=== PATIENT | male | born 1955 ===

== ENCOUNTER 2020-08-30 12:52 | Outpatient (REF) | payer SELFPAY | END 2020-08-30 12:53 | disposition home or self-care (01) | LOC: HO.HAP 12:52 | PROVIDERS: Visit Provider Internal Medicine | DX: Z13.89 Encounter for screening for other disorder (principal) ==

== ENCOUNTER 2020-09-10 10:00 | Outpatient (REF) | payer SELFPAY ==
--- NOTE | 2020-09-10 10:19 | MHC.AU.P13 ---
Hearing Instrument Problem Date of Visit: 09/10/20 Summary: SCHREIBER PROBLEM- Patient dropped off old Oticon SUMO #[id number] - earmold tubing broken. Cleaned earmold and hearing aid, retubed with tube lock tubing, and amplifying clearly. Signature: Provider: FAIZA Robbins-HIS
== END 2020-09-10 10:01 | disposition home or self-care (01) ==
LOC: HO.HAP 10:00
PROVIDERS: Visit Provider Internal Medicine
DX: Z46.1 Encounter for fitting and adjustment of hearing aid (principal)
CPT/HCPCS: 99499

== ENCOUNTER 2020-12-13 10:35 | Outpatient (REF) | payer SELFPAY ==
--- NOTE | 2020-12-13 10:51 | MHC.AU.P13 ---
Hearing Instrument Problem (old aid) Date of Visit: 12/13/20 Left Ear: Corporation Pilot: Phonak Model: Carol B 50-UP Serial Number: [id number] Repair Warranty: 06/04/2023 Loss and Damage Warranty: 06/04/2023 Battery Size: 675 Color: Graphite Sky Tubing: DRI TUBE Thick Type of Mold: Microsonic Shell Dispensed By: [facility] Date of Fittin03/21/2020 Follow-Up Summary: Old Left Sumo brought in for tubing change. Cleaned and changed tubing but was only working intermittently - explained to . Recommendations: Recommendations: Hearing instrument follow-up or maintenance as needed. Signature: Provider: LAYLA Robbins
== END 2020-12-13 10:36 | disposition home or self-care (01) ==
LOC: HO.HAP 10:35
PROVIDERS: Visit Provider Internal Medicine
DX: Z46.1 Encounter for fitting and adjustment of hearing aid (principal)
CPT/HCPCS: 99499

== ENCOUNTER 2021-04-05 12:37 | Outpatient (REF) | payer SELFPAY | END 2021-04-05 12:38 | disposition home or self-care (01) | LOC: HO.HAP 12:37 | PROVIDERS: Visit Provider Internal Medicine | DX: Z13.89 Encounter for screening for other disorder (principal) ==

== ENCOUNTER 2021-10-11 08:43 | Outpatient (REF) | payer SELFPAY ==
--- NOTE | 2021-10-11 08:48 | MHC.AU.HFU ---
Hearing Instrument Follow-Up- Binaural Date of Visit: 10/11/21 Right Ear: None Left Ear: Air Quality Manager: Phonak Model: Carol B 50-UP Serial Number: [id number] Repair Warranty: 06/04/2023 Loss and Damage Warranty: 06/04/2023 Battery Size: 675 Color: Graphite Sky Tubing: DRI TUBE Thick Type of Mold: Microsonic Shell Dispensed By: [facility] Date of Fittin03/21/2020 Follow-Up Summary: Hearing aid maintenance. Hearing aid was cleaned, tubing changed, microphones vacuumed. Hearing aid is in good working order. Mr. Mckeon states that he is interested in trying a hearing aid for the right ear again, even if just for sound awareness. He feels he struggles in social situations because he is only wearing one hearing aid. He states that he has previously tried a CROS but didn't like it. He would consider contacting [facility] to see if he could go through them for a right hearing aid. Advised that first I recommend he take one of our demo aids to see if he notes a benefit. However, he no longer has a right earmold. He is willing to purchase a new right earmold for $85. Took an earmold impression of the right ear without incident. Earmold ordered. Recommendations: Patient will be contacted when materials have arrived.Will schedule him to come in and have a loaner aid set up with the new right earmold. Diagnosis Code(s): Primary Diagnosis: H90.3 Bilateral Sensorineural Hearing Loss Signature: Provider: Jamey Hu, CCC-A
== END 2021-10-11 08:44 | disposition home or self-care (01) ==
LOC: HO.HAP 08:43
PROVIDERS: Visit Provider Internal Medicine
DX: Z13.89 Encounter for screening for other disorder (principal)

== ENCOUNTER 2021-11-13 13:53 | Outpatient (REF) | payer SELFPAY ==
--- NOTE | 2021-11-13 16:40 | MHC.AU.HFU ---
Hearing Instrument Follow-Up- Binaural Date of Visit: 11/13/21 Left Ear: Otter Trawler Boatswain: Phonak Model: Carol B 50-UP Serial Number: [id number] Repair Warranty: 06/04/2023 Loss and Damage Warranty: 06/04/2023 Battery Size: 675 Color: Graphite Sky Tubing: DRI TUBE Thick Type of Mold: Microsonic Shell Dispensed By: [facility] Date of Fittin03/21/2020 Follow-Up Summary: Mr. Malloy was seen today for fitting of a new right earmold with a demo hearing aid for the right ear. He has not used a hearing aid in the right ear in a number of years, but would like to try one again. Recommended he take one of our demos for two weeks to determine if he notices a benefit. If he does, he will try to go through [facility] again. He did not have an earmold for the right, so he purchased a new one today. Right earmold fit well. Programmed a demo Phonak Carol P70-UP aid ([id number]) for the right ear. Ran a feedback test. He reported comfortable fit and good sound quality. He felt he was hearing more clearly now. Recommendations: Will check in with Mr. Malloy in two weeks. to see if he wants to proceed with getting his own right hearing aid. Diagnosis Code(s): Primary Diagnosis: H90.3 Bilateral Sensorineural Hearing Loss Signature: Provider: Jamey Hu, [facility]
== END 2021-11-13 13:54 | disposition home or self-care (01) ==
LOC: HO.HAP 13:53
PROVIDERS: Visit Provider Internal Medicine
DX: Z46.1 Encounter for fitting and adjustment of hearing aid (principal); H90.3 Sensorineural hearing loss, bilateral
CPT/HCPCS: V5264

== ENCOUNTER 2022-01-02 14:07 | Outpatient (REF) | payer SELFPAY | END 2022-01-02 14:08 | disposition home or self-care (01) | LOC: HO.HAP 14:07 | PROVIDERS: Visit Provider Internal Medicine | DX: Z13.89 Encounter for screening for other disorder (principal) ==

== ENCOUNTER 2022-03-27 12:38 | Outpatient (REF) | payer OTHER, SELFPAY ==
--- NOTE | 2022-03-28 11:14 | MHC.AU.AHA ---
Adult Audiological Evaluation Date of Visit: 03/27/22 Reason for Appointment: History of congenital profound hearing loss. Patient communicates with spoken Moroccan and heavily utilizes lip reading in conversation. He arrives today to dete Previous Hearing Test Results: On 05/31/2019 at [facility]- Severe to profound sensorineural hearing loss bilaterally Hearing Instrument History- Left Ear: Slurry Control Tender: Phonak Model: Carol B 50-UP Serial Number: [id number] Battery Size: 675 Warranty: 06/04/2023 Loss and Damage Warranty: 06/04/2023 Dispensed By: [facility] Date of Fittin03/21/2020 Otoscopy: Right Ear: Unremarkable Left Ear: Unremarkable Hearing Evaluation: Transducer(s) Used: Insert Earphones Method: Conventional Audiometry Stimuli Used: Pure Tones Right Ear: Description of Hearing: Severe to profound sensorineural hearing loss Left Ear: Description of Hearing: Severe to profound sensorineural hearing loss Speech Recognition Threshold (SRT): Method Used: Monitored Live Voice Stimuli Used: Spondee Words Right Ear: 85 dBHL Left Ear: 85 dBHL Word Discrimination: Method: Monitored Live Voice Word Lists Used: W-22 Right Ear: 10% at 110 dBHL Left Ear: 10% at 110 dBHL Most Comfortable Level (MCL): Right Ear: 110 dBHL Left Ear: 110 dBHL Comparison: Compared to most recent evaluation: High frequency thresholds have decreased bilaterally Interpretation of Results: Recommendations: Audiological re-evaluation in one year. Patient has been using only a left-sided hearing aid for many years. Recently, he has been trying a demo hearing aid from our office on the right ear to see if he would like it. He has found it beneficial and would like to go forward with purchasing a right-sided hearing aid of his own. See Hearing Aid Evaluation report for details. Diagnosis: Primary Diagnosis: H90.3 Bilateral Sensorineural Hearing Loss Signature: Provider: Jamey Amin, [facility]-A
== END 2022-03-27 12:39 | disposition home or self-care (01) ==
LOC: HO.SH 12:38
PROVIDERS: Visit Provider Internal Medicine
DX: H90.3 Sensorineural hearing loss, bilateral (principal)
CPT/HCPCS: 92552; 92556

== ENCOUNTER 2022-03-27 13:28 | Outpatient (REF) | payer SELFPAY ==
--- NOTE | 2022-03-28 11:11 | MHC.AU.MED ---
Medical Clearance for Hearing Instrumentation Date: 03/28/22 Patient Name: Brandt Mckeon Date of : 1955 Referring Provider: Mike Forbes MD We have seen your patient on 03/27/22 and have determined that they are a candidate for amplification (See accompanying report). Specifically, they would benefit from: Hearing aid use in both ears There is a statute that addresses Medical Evaluation Requirements prior to fitting a patient with a hearing aid. According to [place] statute 265 CMR:6.03(1), (a) General. Except as provided in 265 CMR 6.03(1)(b), a clinical genetics laboratory chief shall not sell a hearing aid unless the prospective user has presented to the clinical genetics laboratory chief a written statement signed by a licensed physician that states that the patient's hearing loss has been medically evaluated and the patient may be considered a candidate for a hearing aid. The medical evaluation must have taken place within the preceding six months. Please note: Due to the [place] Statute referenced above, we cannot accept a signature other than that of a licensed physician. COLD ROLL PACKER SHEET IRON and PA signatures cannot be accepted. I am in agreement with the above recommendation. There is no medical contraindication for hearing instrumentation. Physician Signature Date Physician Name (Printed)
--- NOTE | 2022-03-28 11:11 | MHC.AU.HAS ---
Hearing Aid Evaluation Date of Visit: 03/27/22 Historical Information: Description of Hearing: Severe to profound sensorineural hearing loss bilaterally Current personal amplification information, if applicable: A left-sided Phonak Carol B50-UP, obtained on 03/21/2020 Summary: Patient has been trying a loaner Phonak Carol P Trial instrument for the past few months while he applied to [facility]. He was ultimately denied by [facility], as his income did not meet the guidelines. He found that he does benefit from having a right-sided hearing aid and would like to purchase one of his own. He already has a new mold for the right ear that he previously purchased to do the trial. Hearing Aid Prescription: Based on the individual?s shared listening needs, communication environments, dexterity, desire for connectivity, and personal preferences, the following prescription for amplification has been made: Right ear: Hand Packer: [employer] Model: Carol P50-UP Battery Size: 675 Color: Graphite Sky Action Taken/Action Needed: Medical Clearance to be requested from PCP/ENT Patient will be contacted to schedule a hearing aid fitting when the hearing aid arrives. Primary Diagnosis: H90.3 Bilateral Sensorineural Hearing Loss Signature: Provider: Jamey Amin, CCC-A
== END 2022-03-27 13:29 | disposition home or self-care (01) ==
LOC: HO.HAP 13:28
PROVIDERS: Visit Provider Internal Medicine
DX: H90.3 Sensorineural hearing loss, bilateral (principal)
CPT/HCPCS: 92590; 92591

== ENCOUNTER 2022-04-25 09:53 | Outpatient (REF) | payer SELFPAY ==
--- NOTE | 2022-04-25 13:15 | MHC.AU.HFA ---
Hearing Instrument Fitting- Adult- Binaural Date of Visit: 04/25/22 Hearing Instruments Dispensed: Right Ear: Serial Number: Car Medina P50-UP SN #[id number] Graphite Sky Repair Warranty: 06/25/2025 Loss and Damage Warranty: 06/25/2025 Service Plan: 04/25/2025 Battery Size: 675 Tubing: DRI TUBE Thick Type of Mold: Microsonic Shell (fit date of 11/13/2021) Left Ear: Serial Number: Car B50-UP SN #[id number] Graphite Sky Repair Warranty: 06/04/2023 Loss and Damage Warranty: 06/04/2023 Service Plan: Battery Size: 675 Tubing: DRI TUBE Thick Type of Mold: Microsonic Shell Summary of Fitting: Fit the right hearing aid as patient feels the loaner right aid has been helpful in that he is able to localize sounds and know from which side someone is speaking. Ran feedback test and performed Real Ear measurements with and without SoundRecover, making adjustments to better meet targets. SoundRecover and volume control were then activated. Added a T-Coil program. Following the fit of the right aid, patient noted a difference in loudness between the 2 ears. Most current hearing test last month showed a decrease, but the left aid was not re-programmed. Re-programmed the left aid to the updated audiogram with patient reporting the aids sounded more equal while in the office. Patient has a flip phone so it cannot be paired to the right aid. Patient paid $1250.00 today. Recommendations:Patient does not feel follow-up is necessary at this time. Please call our clinic with any questions or concerns prior to 05/26/2022. Diagnosis Code(s):Primary Diagnosis: H90.3 Bilateral Sensorineural Hearing Loss Services Performed:SCHREIBER Non-Quantity Charges: [facility] [place] [place] (V5299) Signature:Provider: Jesus Zhang, MINE
== END 2022-04-25 09:54 | disposition home or self-care (01) ==
LOC: HO.HAP 09:53
PROVIDERS: Visit Provider Internal Medicine
DX: Z46.1 Encounter for fitting and adjustment of hearing aid (principal); H90.3 Sensorineural hearing loss, bilateral
CPT/HCPCS: V5299

== ENCOUNTER 2022-07-18 10:21 | Outpatient (REF) | payer SELFPAY | END 2022-07-18 10:22 | disposition home or self-care (01) | LOC: HO.HAP 10:21 | PROVIDERS: Visit Provider Internal Medicine | DX: Z13.89 Encounter for screening for other disorder (principal) ==

== ENCOUNTER 2022-09-08 09:05 | Outpatient (REF) | payer SELFPAY | END 2022-09-08 09:06 | disposition home or self-care (01) | LOC: HO.HAP 09:05 | PROVIDERS: Visit Provider Internal Medicine | DX: Z13.89 Encounter for screening for other disorder (principal) ==

== ENCOUNTER 2022-12-19 14:36 | Outpatient (REF) | payer SELFPAY | END 2022-12-19 14:37 | disposition home or self-care (01) | LOC: HO.HAP 14:36 | PROVIDERS: Visit Provider Internal Medicine | DX: Z13.89 Encounter for screening for other disorder (principal) ==

== ENCOUNTER 2023-01-14 14:00 | Outpatient (REF) | payer SELFPAY ==
--- NOTE | 2023-01-14 14:19 | MHC.AU.HA3 ---
Hearing Instrument Follow-Up- Binaural Date of Visit: 01/14/23 Right Ear: Make, Model, Color, Serial Number: Car Medina P50-UP SN #[id number] Graphite Sky Commercial Loan Collection Officer Repair Warranty: 06/25/2025 Commercial Loan Collection Officer Loss and Damage Warranty: 06/25/2025 [facility] Service Plan: 04/25/2025 Battery Size: 675 Earmold/Dome/CShell/SlimTip:Microsonic Shell (fit date of 11/13/2021) Dispensed By: [facility] Date of Fittin04/25/2022 Left Ear: Montrell, Model, Color, Serial Number: Car B50-UP SN #[id number] Graphite Sky Commercial Loan Collection Officer Repair Warranty: 06/04/2023 Commercial Loan Collection Officer Loss and Damage Warranty: 06/04/2023 [facility] Service Plan: 06/04/2023 Battery Size: 675 Earmold/Dome/CShell/SlimTip: Microsonic Shell Dispensed By: [facility] Date of Fittin03/21/2020 Follow-Up Summary: Brandt returned for a left-sided tubing change. The right side recently had a tubing change on 12/19/2022. Cleaned both hearing aids and ear molds. Retubed both molds as the right side was already starting to hardened. A listening check demonstrated that the hearing aids are in good working order. Recommendations: Hearing instrument follow-up or maintenance as needed. Diagnosis Code(s): Primary Diagnosis: H90.3 Bilateral Sensorineural Hearing Loss Signature: Provider: Jesus Cervantes, [facility]
== END 2023-01-14 14:01 | disposition home or self-care (01) ==
LOC: HO.HAP 14:00
PROVIDERS: Visit Provider Internal Medicine
DX: Z13.89 Encounter for screening for other disorder (principal)

== ENCOUNTER 2023-07-02 13:04 | Outpatient (REF) | payer OTHER, MEDICARE, SELFPAY ==
--- NOTE | 2023-07-02 15:27 | MHC.AU.HA3 ---
Hearing Instrument Follow-Up- Binaural Date of Visit: 07/02/23 Right Ear: Make, Model, Color, Serial Number: Car Medina P50-UP SN: [id number] Color: Graphite Sky Churn Driller Helper Repair Warranty: 06/25/2025 Churn Driller Helper Loss and Damage Warranty: 06/25/2025 [facility] Service Plan: 04/25/2025 Battery Size: 675 Earmold/Dome/CShell/SlimTip:Microsonic Shell (fit date of 11/13/2021) Dispensed By: [facility] Date of Fittin04/25/2022 Left Ear: Montrell, Model, Color, Serial Number: Car B50-UP SN: [id number] Color: Graphite Sky Churn Driller Helper Repair Warranty: 06/04/2023 Churn Driller Helper Loss and Damage Warranty: 06/04/2023 [facility] Service Plan: 06/04/2023 Battery Size: 675 Earmold/Dome/CShell/SlimTip: Microsonic Shell Dispensed By: [facility] Date of Fittin03/21/2020 Follow-Up Summary: Brandt returned for routine hearing aid maintenance following an updated hearing test. Cleaned both hearing aids and ear molds. Vacuumed microphones. Ran through dehumidifier. Replaced tubing. No programming adjustments made at this time as hearing is stable. Brandt reported the tinnitus in his left ear has increased significantly in the past month and often interferes with his speech understanding. Discussed follow up with pipe fittings molder for unilateral tinnitus and discussed CIs. However, Brandt reported that due to his work environment, a CI would not work for him. 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 Branches and leaves often brush against his head and he is concerned a CI would get knocked off. Advised that when/if he is ready, he should schedule an appointment at [facility] to obtain more information regarding CIs. Recommendations: Hearing instrument maintenance in 6 months, or sooner if needed. Please contact our clinic with any questions or concerns. Diagnosis Code(s): Primary Diagnosis: H90.3 Bilateral Sensorineural Hearing Loss Signature: Provider: Jesus Cervantes, [facility]
== END 2023-07-02 13:05 | disposition home or self-care (01) ==
LOC: HO.SH 13:04
PROVIDERS: Visit Provider Nurse Practitioner Family
DX: Z01.118 Encounter for examination of ears and hearing with other abnormal findings (principal); H90.3 Sensorineural hearing loss, bilateral
CPT/HCPCS: 92557

== ENCOUNTER 2023-08-20 10:22 | Outpatient (REF) | payer SELFPAY ==
--- NOTE | 2023-08-20 11:25 | MHC.AU.HA3 ---
Hearing Instrument Follow-Up- Binaural Date of Visit: 08/20/23 Right Ear: Make, Model, Color, Serial Number: Car Medina P50-UP SN: [id number] Color: Graphite Sky Flake Miller Helper Repair Warranty: 06/25/2025 Flake Miller Helper Loss and Damage Warranty: 06/25/2025 [facility] Service Plan: 04/25/2025 Battery Size: 675 Earmold/Dome/CShell/SlimTip:Microsonic Shell (fit date of 11/13/2021) Dispensed By: [facility] Date of Fittin04/25/2022 Left Ear: Make, Model, Color, Serial Number: Car B50-UP SN: [id number] Color: Graphite Sky Flake Miller Helper Repair Warranty: 06/04/2023 Flake Miller Helper Loss and Damage Warranty: 06/04/2023 [facility] Service Plan: 06/04/2023 Battery Size: 675 Earmold/Dome/CShell/SlimTip: Microsonic Shell Dispensed By: [facility] Date of Fittin03/21/2020 Follow-Up Summary: Brandt reports his left hearing aid has been cutting in and out since yesterday. Cleaned aid and replaced tubing, significant debris found in battery compartment. Listening check ok after cleaning. Changed right tube as well. He reports improved sound quality. Brandt states his tinnitus has gotten worse since his last visit, and he finds it extremely bothersome. He reports his PCP recommended OTC pills which did not work. He also notes his blood pressure medication was increased and he wonders if this has caused his tinnitus to get worse. Discussed contacting his PCP or pharmacist to discuss. He is very concerned about losing what hearing he has left and worries that his tinnitus will continue to worsen. He does not feel he can pursue CI due to his line of work. He expressed interest in seeing [facility] to find out what his options are, which I encouraged. Recommendations: Recommendations: Return if issue with left hearing aid persists. Diagnosis Code(s): Primary Diagnosis: H90.3 Bilateral Sensorineural Hearing Loss Signature: Provider: Jamey Best, [facility]
== END 2023-08-20 10:23 | disposition home or self-care (01) ==
LOC: HO.HAP 10:22
PROVIDERS: Visit Provider Internal Medicine
DX: Z13.89 Encounter for screening for other disorder (principal)

== ENCOUNTER 2023-08-27 14:08 | Outpatient (REF) | payer SELFPAY ==
--- NOTE | 2023-08-27 14:45 | MHC.AU.HA3 ---
Hearing Instrument Follow-Up- Binaural Date of Visit: 08/27/23 Right Ear: Make, Model, Color, Serial Number: Car Carol P50-UP SN: [id number] Color: Graphite Sky Paperboard Machine Operator Repair Warranty: 06/25/2025 Paperboard Machine Operator Loss and Damage Warranty: 06/25/2025 [facility] Service Plan: 04/25/2025 Battery Size: 675 Film Rental Clerk/Slim Tube: Earmold/Dome/CShell/SlimTip:Microsonic Shell (fit date of 11/13/2021) Type of Wax Guard: Dispensed By: [facility] Date of Fittin04/25/2022 Left Ear: Make, Model, Color, Serial Number: Car B50-UP SN: [id number] Color: Graphite Sky Paperboard Machine Operator Repair Warranty: 06/04/2023 Paperboard Machine Operator Loss and Damage Warranty: 06/04/2023 [facility] Service Plan: 06/04/2023 Battery Size: 675 Film Rental Clerk/Slim Tube: Earmold/Dome/CShell/SlimTip: Microsonic Shell Type of Wax Guard: Dispensed By: [facility] Date of Fittin03/21/2020 Follow-Up Summary: Recently seen. Reports left aid continues to be intermittent. Ready to send it out at this point. Quoted $330. Fit with loaner. Approximated settings from his aid into loaner and then turned it up a bit more at his request. Recommendations: Recommendations: Patient will be contacted when materials have arrived. Diagnosis Code(s): Primary Diagnosis: H90.3 Bilateral Sensorineural Hearing Loss Signature: Provider: Jesus Bermudez, [facility]
== END 2023-08-27 14:09 | disposition home or self-care (01) ==
LOC: HO.HAP 14:08
PROVIDERS: Visit Provider Internal Medicine
DX: Z13.89 Encounter for screening for other disorder (principal)

== ENCOUNTER 2023-09-08 09:17 | Outpatient (REF) | payer SELFPAY | END 2023-09-08 09:18 | disposition home or self-care (01) | LOC: HO.HAP 09:17 | PROVIDERS: Visit Provider Internal Medicine | DX: Z46.1 Encounter for fitting and adjustment of hearing aid (principal); H90.3 Sensorineural hearing loss, bilateral | CPT/HCPCS: V5014 ==

== ENCOUNTER 2023-11-16 07:54 | Outpatient (REF) | payer SELFPAY ==
--- NOTE | 2023-11-16 08:36 | MHC.AU.HA3 ---
Hearing Instrument Follow-Up- Binaural Date of Visit: 11/16/23 Right Ear: Make, Model, Color, Serial Number: Car Medina P50-UP SN: [id number] Color: Graphite Sky Lotteries Agent Repair Warranty: 06/25/2025 Lotteries Agent Loss and Damage Warranty: 06/25/2025 [facility] Service Plan: 04/25/2025 Battery Size: 675 Wind Farm Operations Manager/Slim Tube: Earmold/Dome/CShell/SlimTip:Microsonic Shell (fit date of 11/13/2021) Type of Wax Guard: Dispensed By: [facility] Date of Fittin04/25/2022 Left Ear: Make, Model, Color, Serial Number: Cra B50-UP SN: [id number] Color: Graphite Sky Lotteries Agent Repair Warranty: 09/01/2024 Lotteries Agent Loss and Damage Warranty: 06/04/2023 [facility] Service Plan: 06/04/2023 Battery Size: 675 Wind Farm Operations Manager/Slim Tube: Earmold/Dome/CShell/SlimTip: Microsonic Shell Type of Wax Guard: Dispensed By: [facility] Date of Fittin03/21/2020 Follow-Up Summary: Here for tubing change. Both tubes hard with wax built up. Wax in tone hooks as well. Cleaned aids, earmolds, replaced tone hooks, replaced tubes. Listening check positive. Handed off requested records for [facility] appt. Pt mentions tinnitus is better since he decided to stop taking his BP medication. Encouraged consulting his physician on this matter. He reports they wanted him to try other medications, has been frustrated with the situation, wants to see what [facility] has to say about his tinnitus and go from there. Recommendations: Recommendations : Tube change 3-4 months. Diagnosis Code(s): Primary Diagnosis: H90.3 Bilateral Sensorineural Hearing Loss Signature: Provider: Jesus Bermudez, [facility]
== END 2023-11-16 07:55 | disposition home or self-care (01) ==
LOC: HO.HAP 07:54
PROVIDERS: Visit Provider Internal Medicine
DX: Z13.89 Encounter for screening for other disorder (principal)

== ENCOUNTER 2024-01-06 08:25 | Outpatient (REF) | payer SELFPAY | END 2024-01-06 08:26 | disposition home or self-care (01) | LOC: HO.HAP 08:25 | PROVIDERS: Visit Provider Internal Medicine | DX: Z13.89 Encounter for screening for other disorder (principal) ==

== ENCOUNTER 2024-03-29 11:15 | Outpatient (REF) | payer SELFPAY | END 2024-03-29 11:16 | disposition home or self-care (01) | LOC: HO.HAP 11:15 | PROVIDERS: Visit Provider Internal Medicine | DX: Z13.89 Encounter for screening for other disorder (principal) ==

== ENCOUNTER 2024-05-31 08:00 | Outpatient (REF) | payer SELFPAY | END 2024-05-31 08:01 | disposition home or self-care (01) | LOC: HO.HAP 08:00 | PROVIDERS: Visit Provider Internal Medicine | DX: Z13.89 Encounter for screening for other disorder (principal) ==

== ENCOUNTER 2024-07-15 08:24 | Outpatient (REF) | payer SELFPAY ==
--- NOTE | 2024-07-15 09:23 | MHC.AU.HA3 ---
Hearing Instrument Follow-Up- Binaural Date of Visit: 07/15/24 Right Ear: Make, Model, Color, Serial Number: Car Carol P50-UP SN: [id number] Color: Graphite Sky Lead Network Architect Repair Warranty: 06/25/2025 Lead Network Architect Loss and Damage Warranty: 06/25/2025 [facility] Service Plan: 04/25/2025 Battery Size: 675 Earmold/Dome/CShell/SlimTip:Microsonic Shell (fit date of 11/13/2021) Dispensed By: [facility] Date of Fittin04/25/2022 Left Ear: Make, Model, Color, Serial Number: Car B50-UP SN: [id number] Color: Graphite Sky Lead Network Architect Repair Warranty: 09/01/2024 Lead Network Architect Loss and Damage Warranty: 06/04/2023 [facility] Service Plan: 06/04/2023 Battery Size: 675 Earmold/Dome/CShell/SlimTip: Microsonic Shell Dispensed By: [facility] Date of Fittin03/21/2020 Follow-Up Summary: Here for tubing change. Reports tubes are hard, tone hook spinning on right aid. Cleaned aids and earmolds, ran aids through dehumidifier, replaced tubing, replaced right tone hook. Listening check positive. Recommendations: Recommendations: Hearing instrument follow-up or maintenance as needed. Diagnosis Code(s): Primary Diagnosis: H90.3 Bilateral Sensorineural Hearing Loss Signature: Provider: Jesus Bermudez, [facility]
== END 2024-07-15 08:25 | disposition home or self-care (01) ==
LOC: HO.HAP 08:24
PROVIDERS: Visit Provider Internal Medicine
DX: Z13.89 Encounter for screening for other disorder (principal)

== ENCOUNTER 2024-09-15 10:20 | Outpatient (REF) | payer SELFPAY ==
--- OUTSIDE RECORDS SUMMARY | 2024-09-15 12:13 | XMS_ITS | Clinical Summary ---
Author Organization [facility] Address [address] [place] [address] Care Team Providers Care Proof Machine Operator Name Role Phone Mike Forbes MD Primary Care Provider [phone] Allergies Active Allergy Reactions Criticality Noted Date Comments Penicillins 01/05/2018 Medications Medication Sig Dispensed Refills Start Date End Date Status allopurinol (ZYLOPRIM) 100 MG tablet TAKE ONE TABLET BY MOUTH EVERY DAY 1 10/11/2017 Active meloxicam (MOBIC) 15 MG tablet 0 01/05/2018 Active albuterol (Ventolin HFA) 108 (90 Base) MCG/ACT inhaler Ventolin HFA 90 mcg/actuation aerosol inhaler 0 Active ipratropium-albuterol (DUO-NEB) 0.5-2.5 mg/mL nebulizer 3 mL. 0 Active Family History Medical History Relation Name Comments Cancer Mother Relation Name Status Comments Mother Social History Tobacco Use Types Packs/Day Years Used Date Smoking Tobacco: Never Assessed Sex and Gender Information Value Date Recorded Sex Assigned at Not on file Gender Identity Not on file Sexual Orientation Not on file Last Filed Vital Signs Vital Sign Reading Time Taken Comments Blood Pressure - - Pulse - - Temperature - - Respiratory Rate - - Oxygen Saturation - - Inhaled Oxygen Concentration - - Weight 81.6 kg (180 lb) 01/05/2018 10:12 AM EDT Height 170.2 cm (5' 7 ) 01/05/2018 10:12 AM EDT Body Mass Index 28.19 01/05/2018 10:12 AM EDT Plan of Treatment Health Maintenance Due Date Last Done Comments Hepatitis C Screening 1955 COVID-19 Vaccine (#1) 01/14/1956 Depression Screening 1966 Preventative Health Evaluation 1972 DTap / Tdap / Td (1 - Tdap) 1973 Colon Cancer Screening (Colonoscopy) 1999 Shingrix-Zoster Vaccine (1 of 2) 2004 Fall Risk Assessment 2019 Pneumococcal Vaccine (1 of 1 - PCV) 2019 Influenza Vaccine (#1) 2024 RSV Adult > 60+ Yrs or Pregn ant (1 - 1-dose 75+ series) 2029 Hepatitis B Vaccines Aged Out No long er eligible based on patient's age to complete this topic RSV Ped < 20 months Aged Out No longe r eligible based on patient's age to complete this topic Care Teams Proof Machine Operator Relationship Specialty Start Date End Date Mike Forbes MD [address] [address] PCP - General Internal Medicine 01/05/18
--- OUTSIDE RECORDS SUMMARY | 2024-09-15 12:13 | XMS_ITS | Clinical Summary ---
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 Name Role Phone Mike Forbes MD Primary Care Provider [phone]- [phone] Encounters Date Type Department Care Team Description 07/07/2024 1:34 PM EST - 07/07/2024 11:59 PM EST Hospital Encounter [facility] Xray [address] [place] [address] Cough Discharge Disposition: Home or Self Care from Last 3 Months Surgical History Surgery Date Site/Laterality Comments NECK SURGERY PROCEDURE:NECK SURGERY SHOULDER SURGERY PROCEDURE:SHOULDER SURGERY Medical History Medical History Date Comments Gout DX:Gout Hard of hearing DX:Hard of heari ng Family History Medical History Relation Name Comments Cancer Mother Relation Name Status Comments Mother Social History Tobacco Use Types Packs/Day Years Used Date Smoking Tobacco: Never Assessed Sex and Gender Information Value Date Recorded Sex Assigned at Not on file Legal Sex Male 10:23 AM EST Gender Identity Not on file Sexual Orientation Not on file Obstetrics History Plan of Treatment Health Maintenance Due Date Last Done Comments DTaP,Tdap,and Td Vaccines (1 - Tdap) 1973 Hepatitis A Vaccines (1 of 2 - Risk 2-dose series) 1973 Pneumococcal Vaccine: 50+ Years (1 of 2 - PCV) 1973 Zoster Vaccines (1 of 2) 2004 Hepatitis B Vaccines (1 of 3 - Risk 3-dose series) 2014 RSV Immunization Patients 60 + Years Old (1 - Risk 60-74 years 1-dose series) 2014 COVID-19 Vaccine (4 - 2023-2 5 season) 2024 05/24/2021, 10/13/2020, 09/15/2020 Influenza Vaccine (#1) 2024 05/24/2022 Abdominal Aortic Aneurysm (AAA) Screen 07/07/2024 Cholesterol Screening (Lipid Panel) 07/07/2024 Colorectal Cancer Screening: Colonoscopy 07/07/2024 Depression Screening 07/07/2024 Falls Risk Assessment 07/07/2024 Hepatitis C Screening 07/07/2024 Hypertension/CHF/CAD Annual BMP Blood Test 07/07/2024 Medicare Annual Wellness Visit 07/07/2024 Social Influencers of Health Screening 07/07/2024 HIB Vaccines Aged Out No longer eligi ble based on patient's age to complete this topic HPV Vaccines Aged Out No longer eligi ble based on patient's age to complete this topic IPV Vaccines Aged Out No longer eligi ble based on patient's age to complete this topic MMR Vaccines Aged Out No longer eligi ble based on patient's age to complete this topic Meningococcal ACWY Vaccine Aged Out N o longer eligible based on patient's age to complete this topic Meningococcal B Vacine Aged Out No lo nger eligible based on patient's age to complete this topic RSV Immunization Patients Under 20 months Aged Out No longer eligible b ased on patient's age to complete this topic Varicella Vaccines Aged Out No longer eligible based on patient's age to complete this topic Procedures Procedure Name Priority Date/Time Associated Diagnosis Comments XR CHEST 2 VIEWS STAT 07/07/2024 1:39 PM EST Cough from Last 3 Months Results * XR Chest 2 Views (07/07/2024 1:39 PM EST) Anatomical Region Laterality Modality Body Radiographic Elis ging 07/12/2024 10:5 6 AM EST Impressions 07/12/2024 10:57 AM EST Impression: Stable radiographic appearance of the chest. No active pulmonary process identified. Teleed DELA CRUZ ([id number]) -------- FINAL REPORT -------- Dictated By: Yumiko Cuba Dictated Date: 07/12/2024 10:56 ET Assigned Physician: Yumiko Cuba Reviewed and Electronically Signed By: Yumiko Cuba Signed Date: 07/12/2024 10:57 ET Workstation ID: [id number] Transcribed By: Self Edit Transcribed Date: 07/12/2024 10:56 ET Narrative 07/12/2024 10:57 AM EST History: Cough. Comparison: 12/21/14 Findings: PA and lateral views. The cardiac silhouette remains normal in size. Hilar contours are stable and the pulmonary vascularity is within normal limits. The lungs are clear. The costophrenic angles are sharp. Flowing hyperostosis is again seen along the anterior aspect of the spine. There are small bilateral cervical ribs, an anatomic variant. A surgical screw in the right humeral head suggests prior rotator cuff surgery. Procedure Note Yumiko Cuba MD - 07/12/2024 History: Cough. Comparison: 12/21/14 Findings: PA and lateral views. The cardiac silhouette remains normal in size. Hilarcontours are stable and the pulmonary vascularity is within normal limits.The lungs are clear. The costophrenic angles are sharp. Flowing hyperostosis is again seen along the anterior aspect of the spine.There are small bilateral cervical ribs, an anatomic variant. A surgicalscrew in the right humeral head suggests prior rotator cuff surgery. IMPRESSION: Impression: Stable radiographic appearance of the chest. No active pulmonary processidentified. Telerad JOSE DE JESUS ([id number]) -------- FINAL REPORT -------- Dictated By: Yumiko Cuba Dictated Date: 07/12/2024 10:56 ET Assigned Physician: Yumiko Cuba Reviewed and Electronically Signed By: Yumiko Cuba Signed Date: 07/12/2024 10:57 ET Workstation ID: [id number] Transcribed By: Self Edit Transcribed Date: 07/12/2024 10:56 ET Tyron Green MD IMG XR PROCEDURES Final Result from Last 3 Months Insurance MEDICARE [facility] Care Teams Capping Machine Operator Relationship Specialty Start Date End Date Mike Forbes MD [address] [address] PCP - General Internal Medicine 01/05/18
== END 2024-09-15 10:21 | disposition home or self-care (01) ==
LOC: HO.HAP 10:20
PROVIDERS: Visit Provider Internal Medicine
DX: Z13.89 Encounter for screening for other disorder (principal)